=== PATIENT | male | born 1945 | race Caucasian/White ===

== ENCOUNTER 2021-12-01 21:17 | Emergency (ER) | payer MEDICARE, SELFPAY ==
[2021-12-01 21:19] VITALS: BP 145/94; PULSE 130; RESP 14; TEMP 36.7; O2SAT 96; BMI 26.4
--- NOTE | 2021-12-01 21:48 | CT_ITS ---
INDICATION: altered mental status EXAMINATION: CT BRAIN - CT Head or Brain W/O Contrast Injection TECHNIQUE: Multiple axial images were obtained of the head without intravenous contrast. A radiation dose optimization technique was used for this scan. IV Contrast dosage and agent: None. COMPARISON: No previous for comparison FINDINGS: FINDINGS: HEMISPHERES: 1. The cerebral parenchyma, ventricular system, subarachnoid spaces have normal configuration. 2. Diffuse involutional changes are present. 3. Minimal chronic deep white matter disease and area of remote infarct present within the LEFT lenticular nucleus. 4. No intraparenchymal mass, hemorrhage, or acute territorial infarct. CEREBELLUM - BRAINSTEM: The cerebellum, brainstem, basilar and suprasellar cisterns have normal appearance. No Chiari malformation. PITUITARY: Infundibulum and pituitary have normal configuration. Midline structures appear normal. CSF SPACES: Appropriate for age. No hydrocephalus. Basal cisterns are patent. VESSELS: 1. No significant vascular calcifications in the cavernous carotid vessels. 2. No hyperdense vascular signs noted.. ORBITS AND PARANASAL SINUSES: 1. Normal appearance of the bony orbits. Normal appearance of the globes and retrobulbar soft soft tissues with the exception of ocular banding on the LEFT... 2. Paranasal sinuses are clear. BONY ELEMENTS: Bony elements of the cranial vault, facial skeleton and skull base have normal appearance. SCALP AND SOFT TISSUES: Normal appearance of the soft tissues of the scalp and the visualized face OTHER: None ASPECTS Score for Acute Strokes: 10 CT/Brain/Head without Contrast IMPRESSION: 1. 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 2. No mass, hemorrhage, or acute territorial infarct identified. 3. No radiographically significant sinus disease. 4. Incidental note of LEFT ocular banding. Electronically Signed: Haseeb Hernandez MD at 22:46 EST ,
[2021-12-01 22:18] VITALS: BP 138/78; PULSE 78; RESP 14; O2SAT 98
--- NOTE | 2021-12-01 22:29 | EX.ED.VIS.PS ---
HPI HPI - Psych History of Present Illness Chief Complaint: Suicidal Narrative Narrative: 76-year-old male presenting with suicidal thoughts. Apparently he had a bad morning this morning when he was supposed to get an upper endoscopy and dilation of his esophagus by Dr. Littlejohn at another facility. He states that he drank coffee and water prior to the procedure Dr. Rosales told him he could not do the procedure. He describes Dr. Littlejohn is being very angry and yelling at him because he drank the water and at this point he states that they were in acute shouting match and Dr. Littlejohn threw him out. Over the course of the day he has felt like committing suicide and states that he was thinking about shooting himself with his 38. He states that he called his word processing specialist and asked somebody to come get the guns from his home. He states he no longer has guns there. I asked him if he was still suicidal and he states what would you think with all these medical problems at my age. He does not have a specific plan anymore. He is very angry and seems somewhat confused at times but is alert and oriented x3. He states that he has been off of his Eliquis for 10 days awaiting this procedure. [facility] Medical History Detached retina, left HTN (hypertension) Allergy/AdvReac Type Severity Reaction Status Date / Time No Known Allergies Allergy Verified 12/01/21 21:18 Surgical History History of colon surgery Social History Smoking Status: Never smoker ROS ROS ED Constitutional Constitutional ED: Denies chills or fever(s) Eyes Eyes: Denies blurry vision or diplopia ENT ENT ED: Denies rhinorrhea or sore throat Cardiovascular Cardiovascular: Denies chest pain or palpitations Respiratory/Chest Respiratory/Chest: Denies cough or dyspnea Gastrointestinal Gastrointestinal: Denies abdominal pain, nausea or vomiting Genitourinary Genitourinary ED: Denies dysuria or hematuria Musculoskeletal Musculoskeletal: Denies arthralgias or myalgias Integumentary Denies abscess or rash Neurologic Neurologic: Denies headache(s) or weakness Psychiatric Psychiatric: Reports suicidal thoughts EXAM Physical Exam Const Vital Signs: 12/01/21 21:19 12/01/21 22:18 Temperature 98.1 F Temperature Source Temporal Pulse Rate 130 H 78 Respiratory Rate 14 14 Blood Pressure 145/94 H 138/78 H Blood Pressure Mean 111 98 Pulse Ox 96 98 Oxygen Delivery Method Room Air Room Air Positive well nourished General Appearance ED: NAD; Negative for pallor HEENT normocephalic and atraumatic Resp normal respiratory effort and clear to auscultation bilaterally Cardio Rate: regular rate Rhythm: regular rhythm GI non-tender and non-distended Palpation: soft Neuro oriented x3 and CN's II-XII intact bilaterally Psych denies hallucinations and denies homicidal ideation Attitude: agitated Activity / Motor Behavior: appropriate eye contact Speech: No slurred Thought Process: circumstantial and No flight of ideas Thought Content: suicidality and No homicidality Attention / Concentration: concentration grossly intact Memory / Cognition: memory grossly intact Insight: questionable Judgement: questionable Skin General Skin Exam: Negative for jaundice or pallor Rashes: no rashes MDM MDM MDM Narrative Medical decision making narrative: Patient presenting with suicidal thoughts and threats to kill himself with his 38. He states this was over an argument with his GI doctor over not doing his upper endoscopy today and they were in acute argument about it and he was thrown out of the facility. Patient states that he has been angry all day and because he missed his appointment he was vomiting because he had a piece of chicken stuck in his throat which eventually came up. He states his gums are longer his home however when I ask him if he is still suicidal he states that he is old and has a lot of medical problems and cannot really say that he would not harm himself. He has no other attempts or plans. His CBC is normal. BMP shows a creatinine 1.48 without any comparison but the electrolytes are normal. EtOH is negative. Drug abuse screen is negative. Covid testing is also negative. CT of the brain shows nothing acute but does identify previous remote lacunar infarct. Patient is medically cleared to be evaluated by crisis. Impression: 1. Suicidal threats Lab Data Labs: Laboratory Results - last 24 hr 12/01/21 12/01/21 12/01/21 22:05 22:25 22:25 WBC 9.6 RBC 4.91 Hgb 15.2 Hct 45.7 MCV 93.1 MCH 31.0 MCHC 33.3 RDW Std Deviation 44.5 H RDW Coeff of Stefan 13.2 Plt Count 194 MPV 10.6 Immature Gran % (Auto) 0.400 Neut % (Auto) 71.7 H Lymph % (Auto) 16.5 L Arroyo % (Auto) 10.0 Eos % (Auto) 0.9 Baso % (Auto) 0.5 Absolute Neuts (auto) 6.9 Absolute Lymphs (auto) 1.58 Nucleated RBC % 0 Sodium 138 Potassium 3.6 Chloride 105 Carbon Dioxide 21.0 Anion Gap 12 BUN 38 H Creatinine 1.48 H Estim Creat Clear Calc 43.81 Est GFR (MDRD) Af Amer 59 L Est GFR (MDRD) Non-Af 49 L BUN/Creatinine Ratio 25.7 H Glucose 96 Calcium 9.5 Urine Opiates Screen Urine Methadone Screen Ur Barbiturates Screen Ur Phencyclidine Scrn Ur Amphetamines Screen U Methamphetamin-MDMA U Benzodiazepines Scrn Urine Cocaine Screen U Cannabinoids Screen Ur Drug Screen Comment Ethyl Alcohol 4.0 12/01/21 22:35 WBC RBC Hgb Hct MCV MCH MCHC RDW Std Deviation RDW Coeff of Stefan Plt Count MPV Immature Gran % (Auto) Neut % (Auto) Lymph % (Auto) Arroyo % (Auto) Eos % (Auto) Baso % (Auto) Absolute Neuts (auto) Absolute Lymphs (auto) Nucleated RBC % Sodium Potassium Chloride Carbon Dioxide Anion Gap BUN Creatinine Estim Creat Clear Calc Est GFR (MDRD) Af Amer Est GFR (MDRD) Non-Af BUN/Creatinine Ratio Glucose Calcium Urine Opiates Screen NEGATIVE Urine Methadone Screen NEGATIVE Ur Barbiturates Screen NEGATIVE Ur Phencyclidine Scrn NEGATIVE Ur Amphetamines Screen NEGATIVE U Methamphetamin-MDMA NEGATIVE U Benzodiazepines Scrn NEGATIVE Urine Cocaine Screen NEGATIVE U Cannabinoids Screen NEGATIVE Ur Drug Screen Comment Ethyl Alcohol Radiography Diagnostic Testing: Clinical Impression(s) from Imaging Studies Brain CT 12/01/21 21:48 IMPRESSION: 1. 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 2. No mass, hemorrhage, or acute territorial infarct identified. 3. No radiographically significant sinus disease. 4. Incidental note of LEFT ocular banding. Electronically Signed: Haseeb Hernandez MD at 22:46 EST , Discharge Plan Triage Chief Complaint: Suicidal ED Provider: Arun Wetzel Dx/Rx/DC Orders Primary Care Provider: Antoni Jarvis
[2021-12-01 22:32] LABS: Absolute Lymphocyte Count 1.58 X10^3/uL (0.83-4.51); Absolute Neutrophil Count 6.9 X10^3/uL (2.0-7.7); Basophil# 0.05 X10^3/uL; Basophil% 0.5 % (0-1); Eosinophil# 0.09 X10^3/uL; Eosinophils% 0.9 % (0-5); Hematocrit 45.7 % (40-54); Hemoglobin 15.2 g/dL (13.0-16.5); Lymphocyte # 1.58 X10^3/ul (0.83-4.51); Lymphocyte % 16.5 % (19-41); Mean Corp Hgb Conc 33.3 g/dL (32-36); Mean Corpuscular Volume 93.1 fL (80-94); Mean Platelet Vol. 10.6 fl (6.2-12.0); Monocyte# 0.96 X10^3/uL; NRBC Flagged by Analyzer 0 % (0-5); Neutrophil # 6.85 X10^3/uL (2.7-7.7); Neutrophil % 71.7 % (47-70); Platelet Count 194 K/mm3 (150-450); RBC Distribution Width CV 13.2 % (11.6-14.6); RBC Distribution Width SD 44.5 fl (35.1-43.9); Red Blood Count 4.91 M/mm3 (4.6-6.2); White Blood Count 9.6 K/mm3 (4.4-11.0)
[2021-12-01 22:39] LABS: Anion Gap 12 (5-15); BUN 38 mg/dL (7-18); BUN/Creat Ratio 25.7 RATIO (10-20); Calcium,Total 9.5 mg/dL (8.5-10.1); Chloride 105 mmol/L (98-107); Creatinine, Serum 1.48 mg/dL (0.70-1.30); EST Glomerular Filtration Rate 49 mL/min (>60); Est Glom Filt Rate - Afr Amer 59 mL/min (>60); Estimated Creatinine Clearance 43.81 ml/min; Glucose 96 mg/dL (74-106); Potassium 3.6 mmol/L (3.5-5.1); Sodium Level 138 mmol/L (136-145)
[2021-12-01 22:55] LABS: Amphetamine Urine VISTA NEGATIVE (<1000 ng/mL); Barbiturate Urine VISTA NEGATIVE (< 200 ng/mL); Benzodiazepine Urine VISTA NEGATIVE (< 200 ng/mL); Cocaine Urine VISTA NEGATIVE (< 300 ng/mL); Ecstacy Urine VISTA NEGATIVE (< 500 ng/mL); Methadone Urine VISTA NEGATIVE (< 300 ng/mL); PCP Urine VISTA NEGATIVE (< 25 ng/mL); THC Urine VISTA NEGATIVE (< 50 ng/mL); Vista UDS pH Range 5
[2021-12-01 23:00] VITALS: RESP 14
--- NOTE | 2021-12-01 23:06 | NURSING ---
CALLED [facility] AT [phone] AND FAXED CHART
[2021-12-02] VITALS: RESP 14
[2021-12-02 01:00] VITALS: RESP 14
--- NOTE | 2021-12-02 06:24 | ED.RN ---
PT HAS A RIDE PREVIOUSLY SCHEDULED FOR TODAY AND LEFT WITH HER FOR HIS APPOINTMENT.
[2021-12-02 06:25] VITALS: PULSE 82; RESP 16; O2SAT 99
== END 2021-12-02 06:26 | disposition home or self-care (01) ==
LOC: ED 22:25
PROVIDERS: Emergency Provider Student in an Organized Health Care Education/Training Program; Visit Provider Student in an Organized Health Care Education/Training Program
DX: R45.851 Suicidal ideations (principal); I10 Essential (primary) hypertension; R11.10 Vomiting, unspecified
CPT/HCPCS: 36415; 70450; 80048; 80307; 82077; 85025; 87426; 99283